=== PATIENT | female | born 1955 | race Caucasian/White ===

== ENCOUNTER 2017-10-14 07:39 | Emergency (ER) | payer BC ==
[~2017-10-14] VITALS: Ht 154.9 cm; Wt 85.3 kg
[2017-10-14 07:45] VITALS: Ht 154.9 cm; Wt 85.3 kg
[2017-10-14 10:12] VITALS: BP 142/64
== END 2017-10-14 10:12 | disposition home or self-care (01) ==
LOC: ED 07:39
DX: R07.9 Chest pain, unspecified (principal)
CPT/HCPCS: Q0092

== ENCOUNTER 2019-01-30 12:43 | Emergency (ER) | payer BC ==
[~2019-01-30] VITALS: Ht 154.9 cm; Wt 78.9 kg
[2019-01-30 13:08] VITALS: Ht 154.9 cm; Wt 78.9 kg
[2019-01-30 15:33] VITALS: BP 128/71
== END 2019-01-30 15:33 | disposition home or self-care (01) ==
LOC: ED 12:43
DX: T78.40XA Allergy, unspecified, initial encounter (principal); I10 Essential (primary) hypertension; Z88.5 Allergy status to narcotic agent; X58.XXXA Exposure to other specified factors, initial encounter